=== PATIENT | female | born 1940 | race Caucasian/White ===

== ENCOUNTER 2017-01-04 09:01 | Inpatient (IN) | payer OTHER ==
[~2017-01-04] VITALS: Ht 167.6 cm; Wt 95.0 kg
[~2017-01-04 09:01] MED LIST: AMLO5TAB2 PO; ANAS1TAB PO; ASPI-621 PO; ASPI-770 PO; BACITRACIN 50,000 UNIT ONE; BUPIVACAINE/PF 0.25% ONE; BUPIVACAINE/PF-EPI 0.5% 1:200K ONE; CALC-141 PO; CHOL20002 PO; CHOL200024 PO; GARL5000 PO; GLIM4TAB2 PO; LACT1CAP40 PO; LEVO88TA4 PO; LINA5TAB PO; LISI1TAB7 PO; LISI40TA PO; METF100010 PO; METF500T4 PO; OMEP-110 PO; SIMV40TA3 PO; THROMBIN 5,000 UNIT VIAL TP ONE
[2017-01-04] MEDS ORDERED: LACTATED RINGERS 1,000 ML IV SCH (09:22)
[2017-01-04 09:23] VITALS: BP 131/83
[2017-01-04] MEDS ORDERED: FENTANYL PF 250 MCG/5ML ONE (14:19)
[2017-01-04] MEDS ORDERED: FENTANYL PF 100 MCG/2ML EPIDPUSH ONE (15:28)
[2017-01-04] MEDS ORDERED: LABETALOL 5MG/ML, 20ML IV PRN (15:30)
[2017-01-04] MEDS ORDERED: OXYcodone 5 MG/5 ML ORAL.SOL UDC PO PRN (15:30)
[2017-01-04] MEDS ORDERED: ONDANSETRON 2MG/ML, 2ML IVPush PRN ×2 (15:30→17:00)
[2017-01-04] MEDS ORDERED: hydrALAzine 20 MG/ML, 1ML IV PRN (15:30)
[2017-01-04] MEDS ORDERED: PROMETHAZINE 25 MG/ML, 1ML IV PRN (15:30)
[2017-01-04] MEDS ORDERED: HYDROmorphone 1 MG/ML, 1ML IV PRN (15:30)
[2017-01-04] MEDS ORDERED: FENTANYL PF 100 MCG/2ML ONE ×2 (15:55→16:55)
[2017-01-04] MEDS ORDERED: OXYcodone 5 MG/5 ML ORAL.SOL UDC ONE (16:55)
[2017-01-04] MEDS ORDERED: INSULIN REGULAR 100 UNITS/ML, 3ML VIAL SQ-INSULIN PRN (17:00)
[2017-01-04] MEDS ORDERED: DIPHENHYDRAMINE 50 MG/ML, 1ML IVPush PRN (17:00)
[2017-01-04] MEDS ORDERED: SENNA/DOCUSATE TABLET PO PRN (17:00)
[2017-01-04] MEDS ORDERED: OXYcodone/APAP 5/325MG TABLET PO PRN (17:00)
[2017-01-04] MEDS ORDERED: BISACODYL 10 MG SUPP PR PRN (17:00)
[2017-01-04] MEDS ORDERED: morphine SULFATE 10 MG/ML, 1ML IVPush PRN (17:00)
[2017-01-04] MEDS ORDERED: CYCLOBENZAPRINE 10 MG TABLET PO PRN (17:00)
[2017-01-04] MEDS ORDERED: HYDROcodone/APAP 5/325 TABLET PO PRN (17:00)
[2017-01-04] MEDS ORDERED: PROMETHAZINE 25 MG/ML, 1ML IM PRN (17:00)
[2017-01-04] MEDS ORDERED: PHARMACY MAY ADJ FOR RENAL FX MC PRN (17:00)
[2017-01-04] MEDS ORDERED: CEFAZOLIN 1,000 MG ONE (17:02)
[2017-01-04] MEDS ORDERED: SUCCINYLCHOLINE 20 MG/ML, 10ML ONE (17:02)
[2017-01-04] MEDS ORDERED: ONDANSETRON 2MG/ML, 2ML ONE (17:02)
[2017-01-04] MEDS ORDERED: ROCURONIUM 10 MG/ML ONE (17:02)
[2017-01-04] MEDS ORDERED: PROPOFOL 10 MG/ML, 20ML ONE (17:02)
[2017-01-04] MEDS: FENTANYL PF 100 MCG/2ML IV PRN ×2 (17:08→17:41)
[2017-01-04] MEDS: HYDROcodone/APAP 10/325 MG TABLET PO PRN ×2 (19:57→22:50)
[2017-01-04] MEDS: GLIMEPIRIDE 4 MG TABLET PO SCH (20:02)
[2017-01-04] MEDS: SODIUM CHLORIDE FLUSH 10ML SYR IVF SCH (20:03)
[2017-01-04] MEDS: CEFAZOLIN PMX 1GM/50ML 50 ML IVPB SCH (22:25)
[2017-01-05 00:29] VITALS: BP 105/55
[2017-01-05] MEDS: NS + 20MEQ KCL 1,000 ML IV SCH ×2 (00:39→10:15)
[2017-01-05 04:45] VITALS: BP 114/56
[2017-01-05] MEDS: CEFAZOLIN PMX 1GM/50ML 50 ML IVPB SCH (06:05)
[2017-01-05 07:50] VITALS: BP_SYST 114; BP_SYST 124; BP_DIAS 56; BP_DIAS 58
[2017-01-05] MEDS ORDERED: TEMPLATE NON-FORMULARY MED. (Linagliptin** (Tradjenta**) 5 MG) PO SCH (09:00)
[2017-01-05] MEDS ORDERED: LISINOPRIL 20 MG TABLET PO SCH (09:00)
[2017-01-05] MEDS ORDERED: metFORMIN 500 MG TABLET PO SCH (09:00)
[2017-01-05] MEDS ORDERED: HYDROCHLOROTHIAZIDE 25 MG TABLET PO SCH (09:00)
[2017-01-05] MEDS ORDERED: ANASTROZOLE 1 MG TABLET PO SCH (09:00)
[2017-01-05] MEDS ORDERED: CHOLECALCIFEROL 1,000 UNIT TABLET PO SCH (09:00)
[2017-01-05] MEDS ORDERED: OMEPRAZOLE 20 MG CAPSULE.DR PO SCH (09:00)
[2017-01-05] MEDS ORDERED: LACTOBACILLUS CHEW TABLET PO SCH (09:00)
[2017-01-05] MEDS: GLIMEPIRIDE 4 MG TABLET PO SCH (09:52)
[2017-01-05] MEDS: SODIUM CHLORIDE FLUSH 10ML SYR IVF SCH (10:15)
[2017-01-05 11:20] VITALS: BP 125/63
[2017-01-05] MEDS ORDERED: CYCL-259 PO (12:09)
[2017-01-05] MEDS ORDERED: HYDR-3307 PO (12:09)
[2017-01-05] MEDS ORDERED: CEPH-368 PO (12:10)
== END 2017-01-05 12:28 | disposition home or self-care (01) | DRG 460 ==
LOC: ORIP 09:01 → 4NOR 18:27 → DCLOUNGE 01-05 12:03
PROVIDERS: ADMIT Neurological Surgery; ATTEND Neurological Surgery
PROC: 01NB0ZZ Release Lumbar Nerve, Open Approach (ICD-10-PCS; 2017-01-04)
PROC: 0SB20ZZ Excision of Lumbar Vertebral Disc, Open Approach (ICD-10-PCS; 2017-01-04)
PROC: 4A11X4G Monitoring of Peripheral Nervous Electrical Activity, Intraoperative, External Approach (ICD-10-PCS; 2017-01-04)
PROC: 0SG00AJ Fusion of Lumbar Vertebral Joint with Interbody Fusion Device, Posterior Approach, Anterior Column, Open Approach (ICD-10-PCS; principal; 2017-01-04 13:00)
DX: M48.06 Spinal stenosis, lumbar region (principal); M43.16 Spondylolisthesis, lumbar region; M54.17 Radiculopathy, lumbosacral region; M54.16 Radiculopathy, lumbar region; E11.9 Type 2 diabetes mellitus without complications; F17.210 Nicotine dependence, cigarettes, uncomplicated; Z88.8 Allergy status to other drugs, medicaments and biological substances
CPT/HCPCS: 72100; 82962; 93005; C1713; C1767; J0690; J1815; J2405; J2704; J3010; J3480; J3490; C1751; C1760; C1762; J0330; J7120

== ENCOUNTER → 2017-07-10 | Outpatient (CLI) | payer OTHER ==
[~2017-07-10] MED LIST changes: -BACITRACIN 50,000 UNIT ONE; -BUPIVACAINE/PF 0.25% ONE; -BUPIVACAINE/PF-EPI 0.5% 1:200K ONE; +CEPH-368 PO; +CYCL-259 PO; +HYDR-3307 PO; -THROMBIN 5,000 UNIT VIAL TP ONE
== END | disposition home or self-care (01) ==
LOC: CFH 09:00
PROVIDERS: ATTEND Internal Medicine Hematology & Oncology
DX: Z12.31 Encounter for screening mammogram for malignant neoplasm of breast (principal); Z13.820 Encounter for screening for osteoporosis; N95.9 Unspecified menopausal and perimenopausal disorder; Z85.3 Personal history of malignant neoplasm of breast; Z98.890 Other specified postprocedural states
CPT/HCPCS: 77080; G0202

== ENCOUNTER 2017-08-27 02:40 | Inpatient (IN) | payer OTHER ==
[~2017-08-27] VITALS: Ht 167.6 cm; Wt 93.3 kg
[2017-08-27] MEDS ORDERED: DULA0.75 INJ (03:06)
[2017-08-27] MEDS ORDERED: LOPE2CAP94 PO (03:08)
[2017-08-27] MEDS ORDERED: SODIUM CHLORIDE 0.9% 1,000ML IVBOLUS ONE (03:30)
[2017-08-27] MEDS ORDERED: SODIUM CHLORIDE FLUSH 10ML SYR IVF ONE (03:30)
[2017-08-27 03:46] LABS: BASOPHILS # (AUTO) 0.04 x10^3/uL (0-0.1); BASOPHILS % (AUTO) 1 % (0-1); EOSINOPHILS # (AUTO) 0.15 x10^3/uL (0-0.4); EOSINOPHILS % (AUTO) 2 % (1-7); LYMPHOCYTES # (AUTO) 1.67 x10^3/uL (1-3.4); LYMPHOCYTES % (AUTO) 24 % (22-44); MD NO; MEAN CORPUSCULAR HEMOGLOBIN 26.9 pg (27.0-34.8); MEAN CORPUSCULAR HGB CONC 33.4 g/dL (32.4-35.8); MEAN CORPUSCULAR VOLUME 80.3 fL (80-100); MEAN PLATELET VOLUME 9.5 fL (7.4-10.4); MONOCYTES % (AUTO) 7 % (2-9); NEUTROPHILS # (AUTO) 4.75 x10^3/uL (1.8-6.8); NEUTROPHILS % (AUTO) 67 % (42-75); PLATELET COUNT 198 x10^3/uL (130-400); RED BLOOD COUNT 5.14 x10^6/uL (3.82-5.3); RED CELL DISTRIBUTION WIDTH 16.3 % (9.6-15.2)
[2017-08-27 03:53] LABS: ALBUMIN 3.4 g/dL (3.4-5.0); ANION GAP 9 mmol/L (5-15); CALCIUM 10.5 mg/dL (8.5-10.1); CHLORIDE 102 mmol/L (98-107)
[2017-08-27 03:56] LABS: ALANINE AMINOTRANSFERASE 64 U/L (12-78); ALKALINE PHOSPHATASE 117 U/L (45-117); BILIRUBIN,TOTAL 0.4 mg/dL (0.2-1.0); CREATININE 1.37 mg/dL (0.55-1.02); TOTAL PROTEIN 7.7 g/dL (6.4-8.2)
[2017-08-27] MEDS ORDERED: OMNIPAQUE 350 MG/ML, 100ML BOTTLE ONE (04:52)
[2017-08-27] MEDS ORDERED: FAMOTIDINE 20 MG/2 ML ONE (06:22)
[2017-08-27] MEDS ORDERED: FAMOTIDINE 20 MG/2 ML IVPush ONE (06:30)
[2017-08-27] MEDS ORDERED: SODIUM CHLORIDE 0.9% 1,000 ML IV ONE (06:30)
[2017-08-27 06:46] VITALS: BP 113/72
[2017-08-27] MEDS ORDERED: MORPHINE SULFATE 4 MG/ML, 1ML IVPush PRN (08:00)
[2017-08-27] MEDS ORDERED: ONDANSETRON 2MG/ML, 2ML IVPush PRN (11:30)
[2017-08-27] MEDS ORDERED: ACETAMINOPHEN 325 MG TABLET PO PRN (11:30)
[2017-08-27] MEDS ORDERED: morphine SULFATE 10 MG/ML, 1ML IVPush PRN (11:30)
[2017-08-27] MEDS ORDERED: hydrALAzine 20 MG/ML, 1ML IVPush PRN (11:30)
[2017-08-27] MEDS ORDERED: POLYETHYLENE GLYCOL 17 GM PACKET PO PRN (11:30)
[2017-08-27] MEDS ORDERED: DOCUSATE 100 MG CAPSULE PO PRN (11:30)
[2017-08-27] MEDS ORDERED: ENALAPRILAT 1.25 MG/ML, 2ML IVPush PRN (11:30)
[2017-08-27] MEDS: CHOLECALCIFEROL 1,000 UNIT TABLET PO SCH (12:09)
[2017-08-27] MEDS: LACTOBACILLUS CHEW TABLET PO SCH (12:09)
[2017-08-27] MEDS: SODIUM CHLORIDE 0.9% 1,000 ML IV SCH ×2 (12:10→21:03)
[2017-08-27] MEDS: HEPARIN 5,000 UNITS/ML, 1ML SQ SCH ×2 (12:10→21:00)
[2017-08-27 12:12] LABS: FREE T4 (FREE THYROXINE) 1.32 ng/dL (0.76-1.46); THYROID STIMULATING HORMONE 5.38 mIU/L (0.358-3.740)
[2017-08-27 12:28] LABS: CLOSTRIDIUM DIFFICILE ANTIGEN NEGATIVE; CLOSTRIDIUM DIFFICILE TOXIN NEGATIVE (Negative)
[2017-08-27 12:55] VITALS: BP 98/60
[2017-08-27 13:44] LABS: OCCULT BLOOD POSITIVE (NEGATIVE)
[2017-08-27 13:57] LABS: STOOL FOR LEUKOCYTES RARE (0-1/HPF) (NEGATIVE)
[2017-08-27 14:46] LABS: CRYPTOSPORIDIUM ANTIGEN Negative (Negative)
[2017-08-27] MEDS: INSULIN ASPART 100 UNITS/ML, PEN SQ-INSULIN SCH ×2 (15:00→20:57)
[2017-08-27 16:13] LABS: CULTURE INDICATED? YES; MICROSCOPIC INDICATED
[2017-08-27 19:31] VITALS: BP 112/54
[2017-08-28 02:14] VITALS: BP 113/63
[2017-08-28] MEDS: INSULIN ASPART 100 UNITS/ML, PEN SQ-INSULIN SCH ×4 (03:00→20:46)
[2017-08-28] MEDS: SODIUM CHLORIDE 0.9% 1,000 ML IV SCH ×2 (04:17→14:38)
[2017-08-28] MEDS: OXYcodone IR 5MG TABLET PO PRN ×2 (04:17→11:49)
[2017-08-28] MEDS: HEPARIN 5,000 UNITS/ML, 1ML SQ SCH ×3 (04:19→20:47)
[2017-08-28 05:40] LABS: ALBUMIN 3.1 g/dL (3.4-5.0); ANION GAP 10 mmol/L (5-15); CALCIUM 8.9 mg/dL (8.5-10.1); CHLORIDE 110 mmol/L (98-107)
[2017-08-28 05:41] LABS: BASOPHILS # (AUTO) 0.04 x10^3/uL (0-0.1); BASOPHILS % (AUTO) 1 % (0-1); EOSINOPHILS # (AUTO) 0.15 x10^3/uL (0-0.4); EOSINOPHILS % (AUTO) 3 % (1-7); LYMPHOCYTES % (AUTO) 28 % (22-44); MD NO; MEAN CORPUSCULAR HEMOGLOBIN 26.6 pg (27.0-34.8); MEAN CORPUSCULAR HGB CONC 32.6 g/dL (32.4-35.8); MEAN CORPUSCULAR VOLUME 81.8 fL (80-100); MEAN PLATELET VOLUME 9.6 fL (7.4-10.4); MONOCYTES # (AUTO) 0.41 x10^3/uL (0.2-0.8); MONOCYTES % (AUTO) 8 % (2-9); NEUTROPHILS # (AUTO) 3.21 x10^3/uL (1.8-6.8); NEUTROPHILS % (AUTO) 61 % (42-75); PLATELET COUNT 160 x10^3/uL (130-400); RED BLOOD COUNT 4.54 x10^6/uL (3.82-5.3); RED CELL DISTRIBUTION WIDTH 16.4 % (9.6-15.2)
[2017-08-28 05:45] LABS: ALANINE AMINOTRANSFERASE 65 U/L (12-78); ALKALINE PHOSPHATASE 103 U/L (45-117); BILIRUBIN,TOTAL 0.4 mg/dL (0.2-1.0); CHOL/HDL RATIO 5.1; CHOLESTEROL, TOTAL 197 mg/dL (140-239); CREATININE 0.83 mg/dL (0.55-1.02); HDL CHOL % 20 % (28-40); HDL CHOLESTEROL (DIRECT) 39 mg/dL (40-60); LDL CHOLESTEROL,CALCULATED 109 mg/dL (54-169); LDL/HDL RATIO 2.8 (0.5-3.0); TOTAL PROTEIN 6.6 g/dL (6.4-8.2); TRIGLYCERIDES 245 mg/dL (50-200); VLDL CHOLESTEROL 49 mg/dL (0-25)
[2017-08-28] MEDS ORDERED: MAGNESIUM SULFATE PMX 2GM/50ML 50 ML IV ONE (07:30)
[2017-08-28 07:34] VITALS: BP 123/75
[2017-08-28] MEDS: MAGNESIUM CHLORIDE 64 MG TABLET.DR PO SCH ×2 (08:23→20:46)
[2017-08-28] MEDS: CHOLECALCIFEROL 1,000 UNIT TABLET PO SCH (08:23)
[2017-08-28] MEDS: LACTOBACILLUS CHEW TABLET PO SCH (08:23)
[2017-08-28] MEDS: ANASTROZOLE 1 MG TABLET PO SCH (08:32)
[2017-08-28 14:04] VITALS: BP 120/75
[2017-08-28 18:58] VITALS: BP 123/74
[2017-08-28] MEDS ORDERED: AMOXICILLIN/CLAV 875-125MG TABLET PO SCH (21:00)
[2017-08-29] MEDS: OXYcodone IR 5MG TABLET PO PRN ×2 (00:13→06:23)
[2017-08-29 02:45] VITALS: BP 121/80
[2017-08-29] MEDS: INSULIN ASPART 100 UNITS/ML, PEN SQ-INSULIN SCH ×2 (03:00→08:56)
[2017-08-29] MEDS: SODIUM CHLORIDE 0.9% 1,000 ML IV SCH ×2 (04:28→06:00)
[2017-08-29] MEDS: HEPARIN 5,000 UNITS/ML, 1ML SQ SCH ×2 (04:29→11:40)
[2017-08-29 04:44] LABS: BASOPHILS # (AUTO) 0.02 x10^3/uL (0-0.1); BASOPHILS % (AUTO) 0 % (0-1); EOSINOPHILS # (AUTO) 0.13 x10^3/uL (0-0.4); EOSINOPHILS % (AUTO) 3 % (1-7); LYMPHOCYTES # (AUTO) 1.16 x10^3/uL (1-3.4); LYMPHOCYTES % (AUTO) 29 % (22-44); MD NO; MEAN CORPUSCULAR HEMOGLOBIN 26.8 pg (27.0-34.8); MEAN CORPUSCULAR HGB CONC 33.2 g/dL (32.4-35.8); MEAN CORPUSCULAR VOLUME 80.8 fL (80-100); MEAN PLATELET VOLUME 9.4 fL (7.4-10.4); MONOCYTES # (AUTO) 0.29 x10^3/uL (0.2-0.8); MONOCYTES % (AUTO) 7 % (2-9); NEUTROPHILS # (AUTO) 2.45 x10^3/uL (1.8-6.8); NEUTROPHILS % (AUTO) 61 % (42-75); PLATELET COUNT 148 x10^3/uL (130-400); RED BLOOD COUNT 4.54 x10^6/uL (3.82-5.3); RED CELL DISTRIBUTION WIDTH 16.2 % (9.6-15.2)
[2017-08-29 04:55] LABS: ANION GAP 8 mmol/L (5-15); CALCIUM 8.8 mg/dL (8.5-10.1); CHLORIDE 111 mmol/L (98-107)
[2017-08-29 04:56] LABS: CREATININE 0.73 mg/dL (0.55-1.02)
[2017-08-29 07:59] VITALS: BP 128/72
[2017-08-29] MEDS: LACTOBACILLUS CHEW TABLET PO SCH (08:56)
[2017-08-29] MEDS: MAGNESIUM CHLORIDE 64 MG TABLET.DR PO SCH (08:56)
[2017-08-29] MEDS: CHOLECALCIFEROL 1,000 UNIT TABLET PO SCH (08:56)
[2017-08-29] MEDS: ANASTROZOLE 1 MG TABLET PO SCH (08:58)
[2017-08-29] MEDS ORDERED: CEFTRIAXONE PMX 1GM/50ML 50 ML IV SCH (09:30)
[2017-08-29 13:17] VITALS: BP 127/67
[2017-08-29] MEDS ORDERED: ACET325T14 PO (15:48)
[2017-08-29] MEDS ORDERED: LISI1TAB7 PO (15:48)
[2017-08-29] MEDS ORDERED: CEFD300C37 PO (15:48)
[2017-08-29] MEDS ORDERED: INSU100I18 SQ-INSULIN ×2 (15:55→15:56)
== END 2017-08-29 17:32 | disposition home or self-care (01) | DRG 438 ==
LOC: ED 03:29 → EDIP 06:17 → 3NE 06:43 → 3NW 20:44
PROVIDERS: ADMIT Hospitalist; ATTEND Hospitalist
DX: K85.90 Acute pancreatitis without necrosis or infection, unspecified (principal); N17.0 Acute kidney failure with tubular necrosis; N39.0 Urinary tract infection, site not specified; E86.0 Dehydration; E03.9 Hypothyroidism, unspecified; E11.9 Type 2 diabetes mellitus without complications; E78.5 Hyperlipidemia, unspecified; I10 Essential (primary) hypertension; J44.9 Chronic obstructive pulmonary disease, unspecified; K46.9 Unspecified abdominal hernia without obstruction or gangrene; K57.90 Diverticulosis of intestine, part unspecified, without perforation or abscess without bleeding; N28.1 Cyst of kidney, acquired; Z79.811 Long term (current) use of aromatase inhibitors; Z85.038 Personal history of other malignant neoplasm of large intestine; Z85.3 Personal history of malignant neoplasm of breast; Z87.442 Personal history of urinary calculi; Z90.710 Acquired absence of both cervix and uterus; Z90.49 Acquired absence of other specified parts of digestive tract; Z88.8 Allergy status to other drugs, medicaments and biological substances
CPT/HCPCS: 36415; 74177; 80048; 80053; 80061; 81001; 82272; 82962; 83036; 83690; 83735; 84100; 84439; 84443; 85025; 87046; 87077; 87086; 87147; 87186; 87324; 87328; 87329; 87899; 89055; 96361; 96374; J0696; J1644; Q9967; J3475; J7030; S0028

== ENCOUNTER → 2018-03-11 | Outpatient (CLI) | payer OTHER ==
[~2018-03-11] MED LIST changes: +ACET325T14 PO; -ASPI-770 PO; +ASPI81TA59 PO; +CEFD300C37 PO; +DULA0.75 INJ; +GABA300C10 PO; +INSU100I18 SQ-INSULIN; +LOPE2CAP94 PO; -METF500T4 PO; +METF500T5 PO
== END | disposition home or self-care (01) ==
LOC: CFH 09:08
PROVIDERS: ATTEND Internal Medicine
DX: R91.8 Other nonspecific abnormal finding of lung field (principal); R06.02 Shortness of breath; E11.9 Type 2 diabetes mellitus without complications; I10 Essential (primary) hypertension; E78.5 Hyperlipidemia, unspecified; Z87.891 Personal history of nicotine dependence; Z90.49 Acquired absence of other specified parts of digestive tract
CPT/HCPCS: 71250

== ENCOUNTER → 2018-03-27 | Outpatient (CLI) | payer OTHER | END | disposition home or self-care (01) | LOC: CVU 13:36 | PROVIDERS: ATTEND Internal Medicine | DX: I35.0 Nonrheumatic aortic (valve) stenosis (principal); I70.0 Atherosclerosis of aorta; I11.9 Hypertensive heart disease without heart failure; E78.5 Hyperlipidemia, unspecified; E11.9 Type 2 diabetes mellitus without complications; Z87.891 Personal history of nicotine dependence; Z85.3 Personal history of malignant neoplasm of breast; Z85.038 Personal history of other malignant neoplasm of large intestine | CPT/HCPCS: 93306 ==

== ENCOUNTER 2018-05-08 08:23 | Inpatient (IN) | payer OTHER ==
[~2018-05-08] VITALS: Ht 167.6 cm; Wt 100.2 kg
[~2018-05-08 08:23] MED LIST changes: -AMLO5TAB2 PO; +AMLO5TAB7 PO; -CHOL20002 PO; +CHOL200052 PO; +METF500T17 PO; -METF500T5 PO
[2018-05-08] MEDS ORDERED: methylPREDNISolone SOD SUCC 125 MG/2 ML ONE (08:37)
[2018-05-08] MEDS ORDERED: FAMOTIDINE 20 MG/2 ML ONE (08:38)
[2018-05-08] MEDS ORDERED: methylPREDNISolone SOD SUCC 125 MG/2 ML IVPush SCH (09:00)
[2018-05-08] MEDS ORDERED: FAMOTIDINE 20 MG/2 ML IVPush ONE (09:00)
[2018-05-08] MEDS ORDERED: methylPREDNISolone SOD SUCC 125 MG/2 ML IVPush ONE (09:00)
[2018-05-08 09:54] LABS: BASOPHILS % (AUTO) 0 % (0-1); EOSINOPHILS # (AUTO) 0.02 x10^3/uL (0-0.4); EOSINOPHILS % (AUTO) 0 % (1-7); LYMPHOCYTES # (AUTO) 1.31 x10^3/uL (1-3.4); LYMPHOCYTES % (AUTO) 16 % (22-44); MD NO; MEAN CORPUSCULAR HEMOGLOBIN 30.3 pg (27.0-34.8); MEAN CORPUSCULAR HGB CONC 33.3 g/dL (32.4-35.8); MEAN CORPUSCULAR VOLUME 90.9 fL (80-100); MEAN PLATELET VOLUME 9.5 fL (7.4-10.4); MONOCYTES # (AUTO) 0.18 x10^3/uL (0.2-0.8); MONOCYTES % (AUTO) 2 % (2-9); NEUTROPHILS # (AUTO) 6.94 x10^3/uL (1.8-6.8); NEUTROPHILS % (AUTO) 82 % (42-75); PLATELET COUNT 183 x10^3/uL (130-400); RED BLOOD COUNT 5.26 x10^6/uL (3.82-5.3); RED CELL DISTRIBUTION WIDTH 14.8 % (9.6-15.2)
[2018-05-08 10:03] LABS: ALANINE AMINOTRANSFERASE 47 U/L (12-78); ALBUMIN 3.3 g/dL (3.4-5.0); ANION GAP 11 mmol/L (5-15); CHLORIDE 107 mmol/L (98-107); CREATININE 1.41 mg/dL (0.55-1.02)
[2018-05-08 10:05] LABS: ALKALINE PHOSPHATASE 119 U/L (45-117); BILIRUBIN,TOTAL 0.6 mg/dL (0.2-1.0); TOTAL PROTEIN 7.2 g/dL (6.4-8.2)
[2018-05-08] MEDS ORDERED: LISI-464 PO (10:05)
[2018-05-08] MEDS ORDERED: INSU100I32 SQ (10:11)
[2018-05-08] MEDS ORDERED: CALC-534 PO (10:12)
[2018-05-08] MEDS ORDERED: DAPA5TAB PO (10:26)
[2018-05-08] MEDS ORDERED: SODIUM CHLORIDE FLUSH 10ML SYR IVF PRN (11:00)
[2018-05-08] MEDS ORDERED: PROMETHAZINE 25 MG/ML, 1ML IM PRN (11:30)
[2018-05-08] MEDS ORDERED: LABETALOL 5MG/ML, 20ML IVPush PRN (11:30)
[2018-05-08] MEDS ORDERED: DOCUSATE 100 MG CAPSULE PO PRN (11:30)
[2018-05-08] MEDS ORDERED: hydrALAzine 20 MG/ML, 1ML IVPush PRN (11:30)
[2018-05-08] MEDS ORDERED: ONDANSETRON 2MG/ML, 2ML IVPush PRN (11:30)
[2018-05-08] MEDS ORDERED: ACETAMINOPHEN 325 MG TABLET PO PRN ×2 (11:30→15:00)
[2018-05-08] MEDS ORDERED: ONDANSETRON ODT 4 MG PO PRN (11:30)
[2018-05-08] MEDS ORDERED: methylPREDNISolone SOD SUCC 40 MG/ML IV SCH (11:30)
[2018-05-08 11:36] VITALS: BP 118/72
[2018-05-08 12:27] LABS: ALBUMIN 3.4 g/dL (3.4-5.0); ANION GAP 15 mmol/L (5-15); CALCIUM 9.2 mg/dL (8.5-10.1); CHLORIDE 108 mmol/L (98-107); CREATININE 1.47 mg/dL (0.55-1.02)
[2018-05-08 13:57] LABS: HEMOGLOBIN A1C 10.1 % (4.2-6.3)
[2018-05-08] MEDS: HEPARIN 5,000 UNITS/ML, 1ML SQ SCH ×2 (13:58→21:54)
[2018-05-08 14:28] VITALS: BP 138/80
[2018-05-08] MEDS ORDERED: ALBUTEROL/IPRATROPIUM 2.5MG/0.5MG, 3 ML NPPB SCH ×2 (15:00→19:00)
[2018-05-08] MEDS ORDERED: GABAPENTIN 300 MG CAPSULE PO SCH (15:00)
[2018-05-08] MEDS: SODIUM CHLORIDE 0.9% 1,000 ML IV SCH (15:00)
[2018-05-08] MEDS: DIPHENHYDRAMINE 25 MG CAPSULE PO SCH ×2 (16:12→21:53)
[2018-05-08 17:05] LABS: MICROSCOPIC NOT IND
[2018-05-08 17:11] LABS: CULTURE INDICATED? NO
[2018-05-08] MEDS ORDERED: ALBUTEROL/IPRATROPIUM 2.5MG/0.5MG, 3 ML NPPB PRN (19:00)
[2018-05-08 19:20] VITALS: BP 120/70
[2018-05-08] MEDS: INSULIN DEGLUDEC 28 UNIT SQ SCH (20:39)
[2018-05-08] MEDS ORDERED: FAMOTIDINE 20 MG TABLET PO SCH (21:00)
[2018-05-08] MEDS: GABAPENTIN 300 MG CAPSULE PO SCH (21:53)
[2018-05-09 01:53] VITALS: BP 123/74
[2018-05-09] MEDS: SODIUM CHLORIDE 0.9% 1,000 ML IV SCH ×2 (04:49→14:55)
[2018-05-09] MEDS: HEPARIN 5,000 UNITS/ML, 1ML SQ SCH ×3 (05:45→22:16)
[2018-05-09 06:02] LABS: ANION GAP 8 mmol/L (5-15); BASOPHILS # (AUTO) 0.01 x10^3/uL (0-0.1); BASOPHILS % (AUTO) 0 % (0-1); CALCIUM 8.3 mg/dL (8.5-10.1); CHLORIDE 106 mmol/L (98-107); CREATININE 1.57 mg/dL (0.55-1.02); EOSINOPHILS % (AUTO) 0 % (1-7); LYMPHOCYTES # (AUTO) 0.93 x10^3/uL (1-3.4); LYMPHOCYTES % (AUTO) 13 % (22-44); MD NO; MEAN CORPUSCULAR HEMOGLOBIN 30.5 pg (27.0-34.8); MEAN CORPUSCULAR HGB CONC 33.2 g/dL (32.4-35.8); MEAN CORPUSCULAR VOLUME 91.6 fL (80-100); MONOCYTES # (AUTO) 0.38 x10^3/uL (0.2-0.8); MONOCYTES % (AUTO) 5 % (2-9); NEUTROPHILS # (AUTO) 5.89 x10^3/uL (1.8-6.8); NEUTROPHILS % (AUTO) 82 % (42-75); PLATELET COUNT 141 x10^3/uL (130-400); RED BLOOD COUNT 4.17 x10^6/uL (3.82-5.3); RED CELL DISTRIBUTION WIDTH 14.1 % (9.6-15.2)
[2018-05-09 06:13] LABS: THYROID STIMULATING HORMONE 0.625 mIU/L (0.358-3.740)
[2018-05-09] MEDS: GABAPENTIN 300 MG CAPSULE PO SCH ×2 (08:03→20:32)
[2018-05-09] MEDS: CALCIUM/VITAMIN D3 250-125 TABLET PO SCH (08:03)
[2018-05-09] MEDS: INSULIN REGULAR 100 UNITS/ML, 3ML VIAL SQ-INSULIN SCH ×4 (08:03→21:02)
[2018-05-09] MEDS: DIPHENHYDRAMINE 25 MG CAPSULE PO SCH ×3 (08:04→20:32)
[2018-05-09] MEDS: OMEPRAZOLE 20 MG CAPSULE.DR PO SCH (08:04)
[2018-05-09 08:05] VITALS: BP 112/62
[2018-05-09] MEDS ORDERED: INSULIN DEGLUDEC 28 UNIT SQ SCH (09:00)
[2018-05-09] MEDS: ANASTROZOLE 1 MG TABLET PO SCH (12:23)
[2018-05-09 14:09] VITALS: BP 115/51
[2018-05-09 18:50] VITALS: BP 100/59
[2018-05-09] MEDS: INSULIN DEGLUDEC 28 UNIT SQ SCH (21:00)
[2018-05-10] MEDS: SODIUM CHLORIDE 0.9% 1,000 ML IV SCH ×2 (01:04→11:00)
[2018-05-10 01:14] VITALS: BP 119/73
[2018-05-10 05:47] LABS: ANION GAP 9 mmol/L (5-15); CHLORIDE 112 mmol/L (98-107); CREATININE 0.99 mg/dL (0.55-1.02)
[2018-05-10] MEDS: HEPARIN 5,000 UNITS/ML, 1ML SQ SCH (05:52)
[2018-05-10] MEDS: INSULIN REGULAR 100 UNITS/ML, 3ML VIAL SQ-INSULIN SCH ×2 (07:00→11:00)
[2018-05-10] MEDS ORDERED: DIPH25CA61 PO (08:21)
[2018-05-10 08:28] VITALS: BP 121/74
[2018-05-10] MEDS: DIPHENHYDRAMINE 25 MG CAPSULE PO SCH (08:44)
[2018-05-10] MEDS: CALCIUM/VITAMIN D3 250-125 TABLET PO SCH (08:44)
[2018-05-10] MEDS: GABAPENTIN 300 MG CAPSULE PO SCH (08:44)
[2018-05-10] MEDS: OMEPRAZOLE 20 MG CAPSULE.DR PO SCH (08:44)
[2018-05-10] MEDS: ANASTROZOLE 1 MG TABLET PO SCH (08:49)
== END 2018-05-10 11:48 | disposition home or self-care (01) | DRG 915 ==
LOC: ED 09:15 → EDIP 10:38 → 3NW 11:23 → 5SO 13:38 → DCLOUNGE 05-10 11:26
PROVIDERS: ADMIT Hospitalist; ATTEND Hospitalist
DX: T78.3XXA Angioneurotic edema, initial encounter (principal); N17.0 Acute kidney failure with tubular necrosis; J96.21 Acute and chronic respiratory failure with hypoxia; J84.9 Interstitial pulmonary disease, unspecified; E11.65 Type 2 diabetes mellitus with hyperglycemia; E78.5 Hyperlipidemia, unspecified; T78.1XXA Other adverse food reactions, not elsewhere classified, initial encounter; X58.XXXA Exposure to other specified factors, initial encounter; T44.5X5A Adverse effect of predominantly beta-adrenoreceptor agonists, initial encounter; I10 Essential (primary) hypertension; Z79.4 Long term (current) use of insulin; Z85.038 Personal history of other malignant neoplasm of large intestine; Z85.3 Personal history of malignant neoplasm of breast; Z87.442 Personal history of urinary calculi; Z99.81 Dependence on supplemental oxygen; Z90.710 Acquired absence of both cervix and uterus; Z90.49 Acquired absence of other specified parts of digestive tract; Z90.89 Acquired absence of other organs; Z80.0 Family history of malignant neoplasm of digestive organs; Z82.49 Family history of ischemic heart disease and other diseases of the circulatory system; Z79.899 Other long term (current) drug therapy; Z88.8 Allergy status to other drugs, medicaments and biological substances; Y92.89 Other specified places as the place of occurrence of the external cause
CPT/HCPCS: 36415; 99285; S0028; 70490; 71045; 76770; 80048; 80053; 80069; 81003; 82962; 83036; 83735; 84443; 85025; 86160; 86161; 93005; 96374; 96375; G0378; J1644; J1815; J2930; J7030; J7512; Q0163

== ENCOUNTER → 2018-07-12 | Outpatient (CLI) | payer OTHER ==
[~2018-07-12] MED LIST changes: -ASPI-621 PO; +ASPI81TA45 PO; +CALC-534 PO; +DAPA5TAB PO; +DIPH25CA61 PO; +INSU100I32 SQ; +LISI-464 PO
== END | disposition home or self-care (01) ==
LOC: CFH 11:40
PROVIDERS: ATTEND Internal Medicine Hematology & Oncology
DX: N63.12 Unspecified lump in the right breast, upper inner quadrant (principal); Z85.3 Personal history of malignant neoplasm of breast
CPT/HCPCS: 77066

== ENCOUNTER 2018-12-22 08:49 | Emergency (ER) | payer OTHER, MEDICARE ==
[~2018-12-22] VITALS: Ht 162.6 cm; Wt 96.7 kg
[~2018-12-22 08:49] MED LIST changes: +AMLO-150 PO; -AMLO5TAB7 PO
[2018-12-22 08:53] VITALS: BP 125/76
--- NOTE | 2018-12-22 09:10 | NUR ---
oriented to room for safety.
--- NOTE | 2018-12-22 09:18 | NUR ---
PA at BS
== END 2018-12-22 10:35 | disposition home or self-care (01) ==
LOC: ED 10:00
DX: M17.11 Unilateral primary osteoarthritis, right knee (principal); I10 Essential (primary) hypertension; E11.9 Type 2 diabetes mellitus without complications; E78.5 Hyperlipidemia, unspecified; Z85.038 Personal history of other malignant neoplasm of large intestine; Z85.3 Personal history of malignant neoplasm of breast; Z87.891 Personal history of nicotine dependence
CPT/HCPCS: 99283

== ENCOUNTER 2019-01-10 09:32 | Outpatient (CLI) | payer OTHER, MEDICARE | END 2019-01-10 23:59 | disposition home or self-care (01) | LOC: CARD 09:32 | PROVIDERS: ATTEND Family Medicine | DX: R20.0 Anesthesia of skin (principal) | CPT/HCPCS: 95886; 95908 ==

== ENCOUNTER 2019-07-15 09:23 | Outpatient (CLI) | payer OTHER, MEDICARE ==
[~2019-07-15 09:23] MED LIST changes: +COLE625T13 PO; +EZET10TA70 PO; +FUROSEMIDE PO; -GLIM4TAB2 PO; +GLIM4TAB4 PO; -HYDR-3307 PO; +HYDR-36 PO; +LISI-170 PO; +LISI1TAB20 PO; -LISI1TAB7 PO; +LOPE-114 PO; -LOPE2CAP94 PO
== END 2019-07-15 23:59 | disposition home or self-care (01) ==
LOC: CFH 09:23
PROVIDERS: ATTEND Internal Medicine Hematology & Oncology
DX: Z12.31 Encounter for screening mammogram for malignant neoplasm of breast (principal); C50.211 Malignant neoplasm of upper-inner quadrant of right female breast; D50.9 Iron deficiency anemia, unspecified; E11.49 Type 2 diabetes mellitus with other diabetic neurological complication; K21.9 Gastro-esophageal reflux disease without esophagitis; Z79.811 Long term (current) use of aromatase inhibitors; Z87.891 Personal history of nicotine dependence; Z90.89 Acquired absence of other organs; Z90.49 Acquired absence of other specified parts of digestive tract; Z88.1 Allergy status to other antibiotic agents; Z91.018 Allergy to other foods
CPT/HCPCS: 77067

== ENCOUNTER 2019-08-31 00:07 | Observation (INO) | payer OTHER, MEDICARE ==
[~2019-08-31] VITALS: Ht 160 cm; Wt 96.4 kg
[2019-08-31 00:47] LABS: BASOPHILS # (AUTO) 0.02 x10^3/uL (0-0.1); BASOPHILS % (AUTO) 0 % (0-1); EOSINOPHILS # (AUTO) 0.07 x10^3/uL (0-0.4); EOSINOPHILS % (AUTO) 1 % (1-7); LYMPHOCYTES # (AUTO) 1.47 x10^3/uL (1-3.4); LYMPHOCYTES % (AUTO) 28 % (22-44); MD NO; MEAN CORPUSCULAR HEMOGLOBIN 26.5 pg (27.0-34.8); MEAN CORPUSCULAR HGB CONC 31.9 g/dL (32.4-35.8); MEAN CORPUSCULAR VOLUME 83.2 fL (80-100); MEAN PLATELET VOLUME 9.7 fL (7.4-10.4); MONOCYTES # (AUTO) 0.43 x10^3/uL (0.2-0.8); MONOCYTES % (AUTO) 8 % (2-9); NEUTROPHILS # (AUTO) 3.34 x10^3/uL (1.8-6.8); NEUTROPHILS % (AUTO) 63 % (42-75); PLATELET COUNT 173 x10^3/uL (130-400); RED BLOOD COUNT 4.85 x10^6/uL (3.82-5.3); RED CELL DISTRIBUTION WIDTH 16.8 % (9.6-15.2)
[2019-08-31 00:58] LABS: ALBUMIN 3.2 g/dL (3.4-5.0); ANION GAP 6 mmol/L (5-15); CALCIUM 8.8 mg/dL (8.5-10.1); CHLORIDE 109 mmol/L (98-107); CREATININE 0.92 mg/dL (0.55-1.02)
[2019-08-31] MEDS ORDERED: ACETAMINOPHEN 500 MG TABLET PO ONE (01:00)
[2019-08-31 01:03] LABS: TROPONIN I < 0.015 ng/mL (0.000-0.045)
--- NOTE | 2019-08-31 01:40 | NUR ---
PT UP TO RESTROOM FOR URINE SAMPLE AT THIS TIME
[2019-08-31 02:12] LABS: MICROSCOPIC INDICATED
--- NOTE | 2019-08-31 02:54 | NUR ---
XRAY CALLED TO FOLLOW UP ON XRAY READ
--- NOTE | 2019-08-31 03:00 | NUR ---
ALL RESULTS BACK AT THIS TIME CHART UP FOR RECHECK. AWAITING FURTHER ORDERS
[2019-08-31] MEDS ORDERED: ACETAMINOPHEN 500 MG TABLET ONE (03:15)
--- NOTE | 2019-08-31 03:17 | NUR ---
AT BEDSIDE TO REASSESS PT
[2019-08-31] MEDS ORDERED: KETOROLAC 30 MG/1 ML ONE (03:27)
[2019-08-31] MEDS ORDERED: COLCHICINE 0.6 MG CAPSULE PO ONE ×2 (03:30)
[2019-08-31] MEDS ORDERED: KETOROLAC 30 MG/1 ML IVPush ONE (03:30)
[2019-08-31] MEDS ORDERED: CEFTRIAXONE PMX 1GM/50ML 50 ML IV ONE (03:30)
[2019-08-31] MEDS ORDERED: CEFTRIAXONE PMX 1GM/50ML 50 ML ONE (03:38)
[2019-08-31] MEDS ORDERED: COLCHICINE 0.6 MG CAPSULE ONE (04:17)
[2019-08-31 05:08] VITALS: BP 131/74
[2019-08-31] MEDS ORDERED: CEFTRIAXONE PMX 1GM/50ML 50 ML IV SCH (05:30)
[2019-08-31] MEDS ORDERED: OMEPRAZOLE 20 MG CAPSULE.DR PO PRN (05:30)
[2019-08-31] MEDS ORDERED: KETOROLAC 30 MG/1 ML IV PRN (05:30)
[2019-08-31] MEDS ORDERED: DEXTROSE 4 GM TAB.CHEW PO PRN (05:30)
[2019-08-31] MEDS ORDERED: GLUCAGON 1 MG IM PRN (05:30)
[2019-08-31] MEDS ORDERED: ENALAPRILAT 1.25 MG/ML, 2ML IVPush PRN (05:30)
[2019-08-31] MEDS ORDERED: DEXTROSE 50%, 50ML SYRINGE IVPush PRN (05:30)
[2019-08-31] MEDS ORDERED: DIPHENHYDRAMINE 25 MG CAPSULE PO PRN (05:30)
[2019-08-31] MEDS: HEPARIN 5,000 UNITS/ML, 1ML SQ SCH ×2 (05:30→13:30)
[2019-08-31] MEDS: INSULIN LISPRO 100 UNITS/ML, PEN SQ-INSULIN SCH ×3 (07:00→16:00)
[2019-08-31 07:53] VITALS: BP 124/68
[2019-08-31] MEDS ORDERED: LISINOPRIL 20 MG TABLET PO SCH (09:00)
[2019-08-31] MEDS ORDERED: ANASTROZOLE 1 MG TABLET PO SCH (09:00)
[2019-08-31] MEDS ORDERED: SODIUM CHLORIDE FLUSH 10ML SYR IVF SCH (09:00)
[2019-08-31] MEDS ORDERED: GABAPENTIN 300 MG CAPSULE PO SCH (09:00)
[2019-08-31 14:08] VITALS: BP 150/78
[2019-08-31] MEDS ORDERED: IBUP-1222 PO (14:34)
[2019-08-31] MEDS ORDERED: CEPH-368 PO (14:36)
[2019-08-31 16:45] VITALS: BP 148/72
== END 2019-08-31 17:10 | disposition home or self-care (01) ==
LOC: ED 00:52 → EDIP 03:28 → INTOOBSV 03:28 → 4NE 04:40 → DCLOUNGE 16:55
PROVIDERS: ADMIT Student in an Organized Health Care Education/Training Program; ATTEND Student in an Organized Health Care Education/Training Program
DX: N30.01 Acute cystitis with hematuria (principal); M10.9 Gout, unspecified; E11.9 Type 2 diabetes mellitus without complications; E78.5 Hyperlipidemia, unspecified; Z79.2 Long term (current) use of antibiotics; Z79.899 Other long term (current) drug therapy; Z85.038 Personal history of other malignant neoplasm of large intestine; Z79.4 Long term (current) use of insulin; Z87.891 Personal history of nicotine dependence
CPT/HCPCS: 36415; 71045; 73660; 80048; 81001; 82040; 82962; 84484; 85025; 87077; 87086; 87186; 93005; 96365; 96372; 99284; 99285; G0378; J0696; J1644; J1815; J1885

== ENCOUNTER → 2019-09-05 | Outpatient (CLI) | payer OTHER, MEDICARE ==
[~2019-09-05] MED LIST changes: +IBUP-1222 PO
== END | disposition home or self-care (01) ==
LOC: CFH 10:08
PROVIDERS: ATTEND Internal Medicine Hematology & Oncology
DX: Z13.820 Encounter for screening for osteoporosis (principal); M85.88 Other specified disorders of bone density and structure, other site; Z79.811 Long term (current) use of aromatase inhibitors; Z85.3 Personal history of malignant neoplasm of breast
CPT/HCPCS: 77080

== ENCOUNTER → 2019-09-11 | Outpatient (CLI) | payer OTHER, MEDICARE | END | disposition home or self-care (01) | LOC: CFH 11:35 | PROVIDERS: ATTEND Physician Assistant Surgical | DX: N39.0 Urinary tract infection, site not specified (principal) | CPT/HCPCS: 76770 ==

== ENCOUNTER 2020-03-12 16:46 | Emergency (ER) | payer OTHER, MEDICARE ==
[~2020-03-12] VITALS: Ht 167.6 cm; Wt 99.1 kg
[~2020-03-12 16:46] MED LIST changes: -GLIM4TAB4 PO; +GLIM4TAB8 PO; +HYDR-3246 PO; -HYDR-36 PO; +SIMV40TA20 PO; -SIMV40TA3 PO
[2020-03-12 16:57] VITALS: BP 168/89
--- NOTE | 2020-03-12 17:55 | NUR ---
PT HAS CO OF MOUTH SORES, STATES SHE THINKS ITS THRUSH. UNABLE TO EAT MUCH W OUT PAIN. NO IN RESP DISTRESS. WHITE PATCHES IN MOUTH.
--- NOTE | 2020-03-12 17:55 | NUR ---
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 JOSUE
--- NOTE | 2020-03-12 19:42 | NUR ---
PT D/C WITH D/C SUMMARY AND SCRIPTS AND REFERRAL TO ORAL SURGEON. PT DENIES ANY OTHER NEEDS PERTAINING TO THIS VISIT AND AMBULATES TO REGISTRATION DESK WITH STEADY GAIT FOR D/C HOME.
== END 2020-03-12 19:45 | disposition home or self-care (01) ==
LOC: ED 19:15
DX: K12.30 Oral mucositis (ulcerative), unspecified (principal); I10 Essential (primary) hypertension; E11.9 Type 2 diabetes mellitus without complications; E78.5 Hyperlipidemia, unspecified; M19.90 Unspecified osteoarthritis, unspecified site; Z85.3 Personal history of malignant neoplasm of breast; Z87.891 Personal history of nicotine dependence; Z85.038 Personal history of other malignant neoplasm of large intestine
CPT/HCPCS: 99282